=== PATIENT | male | born 1980 | race Caucasian/White ===

== ENCOUNTER 2016-08-23 06:11 | Emergency (ER) | payer OTHER, SELFPAY ==
[~2016-08-23] VITALS: Ht 180.3 cm; Wt 85.2 kg
[2016-08-23 06:15] VITALS: BP 147/90
[2016-08-23] MEDS ORDERED: DIPH,PERTUSS(ACELL),TET VAC/PF 0.5 ML IM-VACC ONE ×2 (07:00→07:41)
[2016-08-23] MEDS ORDERED: RABIES VACCINE /PF 2.5 UNITS IM-VACC ONE (08:00)
[2016-08-23] MEDS ORDERED: RABIES IMMUNE GLOBULIN/PF 150 UNITS/ML, 2ML IM ONE (08:00)
[2016-08-30] MEDS ORDERED: LISI5TAB7 PO (14:19)
[2016-08-30] MEDS ORDERED: BUPR-173 PO (14:19)
== END 2016-08-23 09:24 | disposition home or self-care (01) ==
LOC: ED 07:33
DX: S60.411A Abrasion of left index finger, initial encounter (principal); I10 Essential (primary) hypertension; S60.312A Abrasion of left thumb, initial encounter; X58.XXXA Exposure to other specified factors, initial encounter; Y93.89 Activity, other specified; Y92.89 Other specified places as the place of occurrence of the external cause; Y99.8 Other external cause status; Z88.5 Allergy status to narcotic agent; Z88.8 Allergy status to other drugs, medicaments and biological substances; Z23 Encounter for immunization
CPT/HCPCS: 90375; 90471; 90472; 90675; 90715; 96372

== ENCOUNTER 2016-08-26 09:19 | Emergency (ER) | payer OTHER ==
[~2016-08-26] VITALS: Ht 180.3 cm; Wt 84.7 kg
[2016-08-26 09:23] VITALS: BP 118/81
[2016-08-26] MEDS ORDERED: RABIES VACCINE /PF 2.5 UNITS IM-VACC ONE (10:00)
[2016-08-30] MEDS ORDERED: LISI5TAB7 PO (14:19)
[2016-08-30] MEDS ORDERED: BUPR-173 PO (14:19)
== END 2016-08-26 10:21 | disposition home or self-care (01) ==
LOC: ED 10:15
DX: Z23 Encounter for immunization (principal); I10 Essential (primary) hypertension; Z88.6 Allergy status to analgesic agent; Z88.8 Allergy status to other drugs, medicaments and biological substances
CPT/HCPCS: 90675

== ENCOUNTER 2017-06-25 09:49 | Day surgery (SDC) | payer OTHER ==
[~2017-06-25] VITALS: Ht 180.3 cm; Wt 72.0 kg
[~2017-06-25 09:49] MED LIST: BUPR-173 PO; LISI5TAB7 PO
[2017-06-25] MEDS ORDERED: LACTATED RINGERS 1,000 ML IV SCH (10:35)
[2017-06-25] MEDS ORDERED: EMTR1TAB17 PO (10:41)
[2017-06-25] MEDS ORDERED: BUPR-173 PO (10:41)
[2017-06-25 10:47] VITALS: BP 117/75
[2017-06-25] MEDS ORDERED: MIDAZOLAM 1 MG/ML, 2ML ONE (12:07)
[2017-06-25] MEDS ORDERED: LABETALOL 5MG/ML, 20ML IV PRN (13:00)
[2017-06-25] MEDS ORDERED: EPHEDRINE 50 MG/ML, 1ML IVPush PRN (13:00)
[2017-06-25] MEDS ORDERED: MIDAZOLAM 1 MG/ML, 2ML IV PRN (13:00)
[2017-06-25] MEDS ORDERED: ONDANSETRON 2MG/ML, 2ML IVPush PRN (13:00)
[2017-06-25] MEDS ORDERED: PROMETHAZINE 12.5 MG SUPP PR PRN (13:00)
[2017-06-25] MEDS ORDERED: ACETAMINOPHEN 325 MG TABLET PO PRN (13:00)
[2017-06-25] MEDS ORDERED: SUCCINYLCHOLINE 20 MG/ML, 10ML ONE (13:01)
[2017-06-25] MEDS ORDERED: FENTANYL PF 250 MCG/5ML ONE ×2 (13:01→13:25)
[2017-06-25] MEDS ORDERED: GLYCOPYRROLATE 0.2MG/1ML, 5ML ONE (13:01)
[2017-06-25] MEDS ORDERED: BUPIVACAINE/PF 0.5% INFIL ONE (13:02)
[2017-06-25] MEDS ORDERED: FENTANYL PF 100 MCG/2ML ONE (13:58)
[2017-06-25] MEDS ORDERED: ACETAMINOPHEN 650 MG/20.3 ML UDC ONE (13:58)
[2017-06-25] MEDS ORDERED: OXYcodone 5 MG/5 ML ORAL.SOL UDC ONE ×2 (13:58→15:04)
[2017-06-25] MEDS ORDERED: EPINEPHRINE 1 MG/ML, 1ML ONE (14:01)
[2017-06-25] MEDS ORDERED: BUPIVACAINE/PF 0.5% ONE (14:01)
[2017-06-25] MEDS: FENTANYL PF 100 MCG/2ML IV PRN ×2 (14:02→14:12)
[2017-06-25] MEDS: OXYcodone 5 MG/5 ML ORAL.SOL UDC PO PRN ×2 (14:02→15:04)
[2017-06-25] MEDS ORDERED: ONDANSETRON 2MG/ML, 2ML ONE (14:12)
[2017-06-25] MEDS ORDERED: HYDROmorphone 2 MG/ML, 1ML ONE (14:22)
[2017-06-25] MEDS: HYDROmorphone 1 MG/ML, 1ML IV PRN ×5 (14:24→14:55)
== END 2017-06-25 16:10 ==
LOC: OUT 09:49
PROVIDERS: ATTEND Surgery
DX: K40.90 Unilateral inguinal hernia, without obstruction or gangrene, not specified as recurrent (principal); Z91.09 Other allergy status, other than to drugs and biological substances; Z72.89 Other problems related to lifestyle; Z87.891 Personal history of nicotine dependence; Z88.5 Allergy status to narcotic agent
CPT/HCPCS: 49650; C1727; C1781; J0171; J0330; J1170; J2250; J2405; J3010; J3490; J7120

== ENCOUNTER 2017-11-26 09:23 | Day surgery (SDC) | payer OTHER ==
[~2017-11-26] VITALS: Ht 180.3 cm; Wt 70.0 kg
[~2017-11-26 09:23] MED LIST changes: +BUPIVACAINE/PF 0.5% ONE; +EMTR1TAB17 PO; +EPINEPHRINE 1 MG/ML, 1ML ONE
[2017-11-26 10:30] VITALS: BP 135/86
[2017-11-26] MEDS ORDERED: LACTATED RINGERS 1,000 ML IV SCH (10:46)
[2017-11-26] MEDS ORDERED: GABAPENTIN 300 MG CAPSULE PO ONE (11:00)
[2017-11-26] MEDS ORDERED: OxyconTIN ER 20 MG TAB.ER PO ONE (11:00)
[2017-11-26] MEDS ORDERED: ACETAMINOPHEN 500 MG TABLET PO ONE (11:00)
[2017-11-26] MEDS ORDERED: FENTANYL PF 250 MCG/5ML ONE (12:24)
[2017-11-26] MEDS ORDERED: MIDAZOLAM 1 MG/ML, 2ML ONE ×2 (12:24→16:11)
[2017-11-26] MEDS ORDERED: PROPOFOL 10 MG/ML, 20ML ONE (12:25)
[2017-11-26] MEDS ORDERED: ROCURONIUM 10MG/ML,5ML ONE (12:25)
[2017-11-26] MEDS ORDERED: GLYCOPYRROLATE 0.4 MG/2 ML, 2ML ONE (12:26)
[2017-11-26] MEDS ORDERED: NEOSTIGMINE 1 MG/ML, 10ML ONE ×2 (12:26)
[2017-11-26] MEDS ORDERED: CEFAZOLIN 1,000 MG ONE ×2 (12:27)
[2017-11-26] MEDS ORDERED: WATER-INJECTION,STERILE 10 ML IV ONE (12:27)
[2017-11-26] MEDS ORDERED: MEPERIDINE/PF 25MG/0.5ML IVPush PRN (15:00)
[2017-11-26] MEDS ORDERED: LABETALOL 5MG/ML, 20ML IV PRN (15:00)
[2017-11-26] MEDS ORDERED: FENTANYL PF 100 MCG/2ML IV PRN (15:00)
[2017-11-26] MEDS ORDERED: PROMETHAZINE 25 MG SUPP PR PRN (15:00)
[2017-11-26] MEDS ORDERED: OXYcodone 5 MG/5 ML ORAL.SOL UDC PO PRN (15:00)
[2017-11-26] MEDS ORDERED: hydrALAzine 20 MG/ML, 1ML IV PRN (15:00)
[2017-11-26] MEDS ORDERED: MORPHINE SULFATE 4 MG/ML, 1ML IVPush PRN (15:00)
[2017-11-26] MEDS ORDERED: ONDANSETRON ODT 8 MG PO PRN (15:00)
[2017-11-26] MEDS ORDERED: PROMETHAZINE 25 MG/ML, 1ML IV PRN (15:00)
[2017-11-26] MEDS ORDERED: PROMETHAZINE 12.5 MG SUPP PR PRN (15:00)
[2017-11-26] MEDS ORDERED: BUPIVACAINE/PF 0.5% INFIL ONE (15:27)
[2017-11-26] MEDS ORDERED: FENTANYL PF 100 MCG/2ML ONE (16:11)
[2017-11-26] MEDS ORDERED: OXYcodone 5 MG/5 ML ORAL.SOL UDC ONE (16:12)
[2017-11-26] MEDS ORDERED: PROMETHAZINE 25 MG/ML, 1ML ONE (16:23)
[2017-11-26] MEDS ORDERED: HYDROmorphone 2 MG/ML, 1ML ONE (17:19)
[2017-11-26] MEDS: HYDROmorphone 1 MG/ML, 1ML IV PRN ×2 (17:21→17:35)
[2017-11-26] MEDS ORDERED: HYDROcodone/APAP 5/325 TABLET PO PRN (19:00)
[2017-11-26] MEDS ORDERED: ONDANSETRON 2MG/ML, 2ML IVPush PRN (19:00)
[2017-11-26 19:51] VITALS: BP 120/83
[2017-11-26] MEDS ORDERED: BUPROPION SR 100 MG TABLET PO SCH (21:00)
[2017-11-26] MEDS ORDERED: LISINOPRIL 5 MG TABLET PO SCH (21:00)
== END 2017-11-26 20:35 | disposition home or self-care (01) ==
LOC: OUT 09:23 → 4NOR 18:30 → OUT 20:35
PROVIDERS: ATTEND Surgery
DX: K40.91 Unilateral inguinal hernia, without obstruction or gangrene, recurrent (principal); I10 Essential (primary) hypertension; Z88.5 Allergy status to narcotic agent; Z88.8 Allergy status to other drugs, medicaments and biological substances; Z72.89 Other problems related to lifestyle; Z87.891 Personal history of nicotine dependence
CPT/HCPCS: 49520; C1781; G0378; J0171; J0690; J1170; J2550; J2704; J2710; J3010; J3490; J7120; J2250

== ENCOUNTER 2020-06-15 17:12 | Emergency (ER) | payer OTHER ==
[~2020-06-15] VITALS: Ht 160 cm; Wt 71.9 kg
[~2020-06-15 17:12] MED LIST changes: -BUPIVACAINE/PF 0.5% ONE; -EPINEPHRINE 1 MG/ML, 1ML ONE
--- NOTE | 2020-06-15 17:47 | NUR ---
RN at bedside. Pt sats 95% RA but reporting SOB. Pt tachycardic HR 110- placed on quality assurance monitor final. Provided warm blanket.
--- NOTE | 2020-06-15 19:05 | NUR ---
patient resting in bed. startled when i awoke him with HR increase. patient was not responding to voice at that time. patient interactive with RN and MD. MD at bedside. patient reports feeling "hot". He remains afebrile. safety maintained. call johnson in reach. will continue to monitor.
[2020-06-15 19:32] LABS: BASOPHILS % (AUTO) 1 % (0-1); EOSINOPHILS % (AUTO) 5 % (1-7); LYMPHOCYTES % (AUTO) 37 % (22-44); MEAN CORPUSCULAR HEMOGLOBIN 31.7 pg (27.5-34.5); MEAN CORPUSCULAR HGB CONC 33.6 g/dL (33.2-36.2); MEAN PLATELET VOLUME 7.8 fL (7.4-10.4); MONOCYTES % (AUTO) 10 % (2-9); NEUTROPHILS % (AUTO) 48 % (42-75); PLATELET COUNT 277 x10^3/uL (130-400); RED BLOOD COUNT 4.61 x10^6/uL (4.38-5.82); RED CELL DISTRIBUTION WIDTH 13.3 % (9.4-14.8)
[2020-06-15 19:34] LABS: MD NO
[2020-06-15 19:44] LABS: ALANINE AMINOTRANSFERASE 29 U/L (12-78); ALBUMIN 3.5 g/dL (3.4-5.0); ANION GAP 3 mmol/L (5-15); CALCIUM 8.7 mg/dL (8.5-10.1); CHLORIDE 107 mmol/L (98-107); CREATININE 0.77 mg/dL (0.7-1.3)
[2020-06-15 19:47] LABS: ALKALINE PHOSPHATASE 113 U/L (45-117); BILIRUBIN,TOTAL 0.4 mg/dL (0.2-1.0); TOTAL PROTEIN 6.9 g/dL (6.4-8.2)
--- NOTE | 2020-06-15 20:17 | NUR ---
patient's mother called for update and patient requested that he give her an update on his own. i relayed this to mother and she will call his cell phone. patient resting in bed in NAD. VS remain stable on RA
--- NOTE | 2020-06-15 20:30 | NUR ---
patient requesting for registration. registration notified. will call him on his cell phone
--- NOTE | 2020-06-15 21:44 | NUR ---
disharge instructions reviewed with patient. no further questions from patient at this time. covid swab performed and sent to lab prior to DC. prescription directly handed to patient. all personal belongings with patient on dc. no IV placed. steady gait with ambulation to lobby
[2020-06-15 21:45] VITALS: BP 127/83
== END 2020-06-15 21:47 | disposition home or self-care (01) ==
LOC: ED 20:01
DX: J40 Bronchitis, not specified as acute or chronic (principal); Z20.822 Contact with and (suspected) exposure to COVID-19; R50.9 Fever, unspecified; I10 Essential (primary) hypertension; Z21 Asymptomatic human immunodeficiency virus [HIV] infection status; Z87.891 Personal history of nicotine dependence
CPT/HCPCS: 36415; 71045; 80053; 85025; 87635; 99284